=== PATIENT | female | born 1925 | race Caucasian/White ===

== ENCOUNTER 2016-06-17 09:38 | Observation (INO) | payer OTHER, MEDICARE ==
[2016-06-17] MEDS ORDERED: IOPAMIDOL (ISOVUE 370) 100 ML BTL IV ONE (09:43)
--- NOTE | 2016-06-17 09:50 | CPEKG ---
Heart Rate: 69 RR Interval: 870 P-R Interval: 162 QRSD Interval: 110 QT Interval: 420 QTC Interval: 450 QRS [place]: 268 T Wave [place]: 31 EKG Severity - ABNORMAL ECG - EKG Impression: ATRIAL-PACED RHYTHM EKG Impression: LAD, CONSIDER LEFT ANTERIOR FASCICULAR BLOCK EKG Impression: LOW VOLTAGE IN FRONTAL LEADS EKG Impression: CONSIDER LEFT VENTRICULAR HYPERTROPHY Electronically Signed By: Brandy Castro 17-Jun-2016 11:16:04
--- NOTE | 2016-06-17 09:51 | EDPHY ---
H & P HPI/ROS: CHIEF COMPLAINT: Fall, head injury HISTORY OF PRESENT ILLNESS: 89-year-old female with a history of atrial fibrillation on anticoagulation presents with a head injury. She lives in assisted living and was last seen normal yesterday. This morning she was found on the floor, with a contusion on her forehead. 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 On the way to the emergency department, her speech became slurred. She now complains of a headache and neck pain. No chest pain, abdominal pain or extremity pain. Apparently her a couple of weeks ago and she has not been eating or drinking much since then. She was admitted in April 2016 after a fall of unclear etiology. REVIEW OF SYSTEMS: Constitutional: No fever, no chills Eyes: No visual changes ENT: No sore throat Respiratory: No cough, no shortness of breath Cardiac: No chest pain Gastrointestinal: No nausea, no vomiting, no abdominal pain Genitourinary: no dysuria Musculoskeletal: No leg pain or swelling Skin: No rash Psychiatric: Situational depression Past Medical/Surgical History: Atrial fibrillation Social History: Recently Lives in assisted living Smoking Status: Never smoked Physical Exam: General Appearance: Alert, answers questions appropriately Head: ecchymoses on the right side of forehead Eyes: No conjunctival erythema, PERRLA, EOMI ENT, Mouth: no oral trauma, no facial bony tenderness Neck: no midline tenderness Respiratory: No chest wall tenderness, lungs clear bilaterally anteriorly Cardiovascular: Regular rate and rhythm Abdomen: Abdomen is soft and nontender Skin: No lacerations, no abrasions Back: No midline T/L/S tenderness Extremities: Pelvis is stable and nontender; no extremity tenderness or deformity, range of motion without pain Neurological: alert, oriented to person and place, 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, able to move toes Psychiatric: Mood and affect normal Constitutional: Initial Vital Signs Temperature (C) 35.4 C L 06/17/16 09:38 Heart Rate 70 06/17/16 09:38 Respiratory Rate 16 06/17/16 09:38 Blood Pressure 197/111 H 06/17/16 09:38 O2 Sat (%) 100 06/17/16 09:38 O2 Delivery Mode Nasal Cannula O2 (L/minute) 2 Allergies/Adverse Reactions: morphine Allergy (Verified 05/13/16 02:49) oxycodone [Oxycodone] Allergy (Verified 05/13/16 02:49) Home Medications: Medication Instructions Recorded Amiodarone HCl [Pacerone (*)] 100 mg PO DAILY 01/18/13 Docusate Sodium [Colace 100 MG (*)] 100 mg PO TID 12/22/13 Hydrocodone/Acetaminophen [Tenino 2 tab PO TID@0800,1400,2000 12/22/13 5/325 (*)] Sennosides 8.6 mg PO HS 12/22/13 Lisinopril [Zestril 20 mg (*)] 20 mg PO DAILY 12/29/13 Amitriptyline HCl [Elavil 10 mg 10 mg PO HS 07/07/15 (*)] Multivitamins [Multivitamin (*)] 1 each PO DAILY 07/07/15 DULoxetine [Cymbalta 30 MG (*)] 30 mg PO HS 01/03/16 Dabigatran Etexilate Mesylate 75 mg PO BID 01/03/16 [Pradaxa] Acetaminophen [Tylenol 325mg (*)] 650 mg PO Q4 PRN #0 tab 01/07/16 Magnesium Hydroxide [Milk of 30 ml PO DAILY PRN #0 udcup 01/07/16 Magnesia (*)] Magnesium Oxide [Magnesium Oxide 500 mg PO DAILY 04/03/16 500 mg] Polyethylene Glycol 3350 [Miralax 17 gm PO DAILY PRN MDD CONSTIPATION 04/03/16 17 gm (*)] Ondansetron Odt [Zofran Odt 4 mg 4 mg PO Q4 PRN 04/23/16 (*)] Gabapentin [Neurontin 300 MG (*)] 300 mg PO DAILY #30 cap 04/24/16 Gabapentin [Neurontin 400 MG (*)] 400 mg PO HS #30 cap 04/24/16 Zolpidem Tartrate [Ambien 10 mg] 10 mg PO HS PRN 06/17/16 Medical Decision Making - Diagnostics EKG Interpretation: EKG interpreted by me reveals an atrial paced rhythm, rate 69, no ST or T segment changes. Imaging: CT scans of the brain and cervical spine read by Dr. Vel iJ revealed no acute changes. Chest x-ray reviewed by me reveals possible right-sided rib fractures ED Course/Re-evaluation: The patient was slightly hypothermic on arrival with a oral temperature of 35.4 degrees. Warmed IV fluids initiated and warm blankets placed. A cervical spine collar was placed because of neck pain. After the normal CT scans, the cervical spine was cleared by me and the collar was removed. Laboratory results reveal hyponatremia. In reviewing her prior serum sodium levels, she is almost always hyponatremic, though her serum sodium level today of 126 is on the low end of her usual sodium levels. The clinical history supports dehydration, as she has not been eating or drinking much since her . I will give her gentle IV fluids for now. The hospitalist service was consulted for admission. Because the patient came in as a limited +trauma activation, Dr. Ramon Sheikh was consulted for trauma. Chest x-ray results reveal possible rib fractures and the results were discussed with the patient. I re-examined her. She has minimal right lateral chest wall tenderness, unclear if she has rib fractures or not. Normal chest wall inspection, no ecchymosis or abrasion. She is having minimal discomfort and there is no evidence of pneumothorax. 12:30p--more alert, smiling, pleasant. Differential Diagnosis: Differential diagnosis includes though it is not limited to fracture, intracranial hemorrhage, pneumothorax, hemothorax, intra-abdominal hemorrhage. - Data Points Laboratory Results: Laboratory Results 06/17/16 10:01 06/17/16 10:01 06/17/16 10:01 WBC 7.07 10^3/uL (3.80-9.50) RBC 3.85 L 10^6/uL (4.18-5.33) Hgb 12.9 g/dL (12.6-16.3) Hct 36.8 L % (38.0-47.0) MCV 95.6 fL (81.5-99.8) MCH 33.5 pg (27.9-34.1) MCHC 35.1 g/dL (32.4-36.7) RDW 12.8 % (11.5-15.2) Plt Count 180 10^3/uL (150-400) MPV 8.8 fL (8.7-11.7) Neut % (Auto) 84.2 H % (39.3-74.2) Lymph % (Auto) 9.6 L % (15.0-45.0) [place] % (Auto) 5.7 % (4.5-13.0) Eos % (Auto) 0.1 L % (0.6-7.6) Baso % (Auto) 0.1 L % (0.3-1.7) Nucleat RBC Rel Count 0.0 % (0.0-0.2) Absolute Neuts (auto) 5.95 10^3/uL (1.70-6.50) Absolute Lymphs (auto) 0.68 L 10^3/uL (1.00-3.00) Absolute Monos (auto) 0.40 10^3/uL (0.30-0.80) Absolute Eos (auto) 0.01 L 10^3/uL (0.03-0.40) Absolute Basos (auto) 0.01 L 10^3/uL (0.02-0.10) Absolute Nucleated RBC 0.00 10^3/uL (0-0.01) Immature Gran % 0.3 % (0.0-1.1) Immature Gran # 0.02 10^3/uL (0.00-0.10) PT 14.6 SEC (12.0-15.0) INR 1.15 (0.83-1.16) APTT 33.1 SEC (23.0-38.0) Sodium 126 L mEq/L (134-144) Potassium 4.0 mEq/L (3.5-5.2) Chloride 92 L mEq/L (97-110) Carbon Dioxide 26 mEq/l (22-31) Anion Gap 8 mEq/L (8-16) BUN 20 mg/dL (7-23) Creatinine 0.5 L mg/dL (0.6-1.0) Estimated GFR > 60 Glucose 117 H mg/dL (70-100) Calcium 8.4 L mg/dL (8.5-10.4) TSH Pending Medications Given: Discontinued Medications Sodium Chloride (Ns) 500 mls @ 0 mls/hr IV ONCE ONE PRN Reason: As Directed Stop: 06/17/16 10:56 Last Admin: 06/17/16 11:22 Dose: 500 mls Departure - Departure Disposition: Home, Routine, Self-Care Clinical Impression: Recurrent falls, Head injury, Hyponatremia syndrome Condition: Fair
--- NOTE | 2016-06-17 10:06 | CT ---
CT Brain Without Contrast 0 948 hours History: Recent fall. Closed head injury. Unresponsive. On Coumadin medication.. Technique: Axial computed tomographic images of the brain without contrast. Images were reconstruct ed down to 1.25 mm slice thickness. Dose reduction techniques were utilized. Comparison to prior CT study from May 13, 2016. Findings: Ventricles, cisterns, and sulci are widened consistent with moderate atrophy. No hydroceph alus, masses, midline shift/herniation, or subdural hematomas. No intraparenchymal hemorrhage or mass effect. Moderate to extensive stable hypodensities are seen in the white matter of bilateral cerebra l hemispheres. There is no acute peripheral cerebral infarct seen. Arteriosclerotic calcifications are noted associated with distal ICA in the parasellar location bilaterally. Bone windows demonstrate no displaced fractures. Paranasal sinuses and mastoid air cells are clear. Impression: 1. Stable moderate atrophy. 2. No hemorrhage, mass effect, or definite acute peripheral infarct. 3. Stable moderate to extensive microvascular ischemic disease. These findings were discussed by telephone with Dr. Brandy Castro at 1010hrs.
--- NOTE | 2016-06-17 10:13 | CT ---
CT Cervical Spine 0 948 hours History: Recent trauma. Evaluate for possible cervical spine injury. Technique: Spiral imaging was obtained from the base of skull to the upper chest. Images were reconst ructed at 1.25 mm slice thickness. Images were reconstructed in multiple planes. Dose reduction techn iques were utilized. Comparison to prior CT study of April 03, 2016. Findings: Vertebral body heights are well maintained. There are no subluxations. No acute fractures a re seen. There is stable healing fracture or stress fracture response right pedicle of C7. Anterior i nterbody fusion is seen from C3 through C7 appears to be intact with good alignment. There is no sign ificant facet hypertrophy involving the cervical spine. Paravertebral soft tissues demonstrate no sig nificant abnormality. Impression: 1. No acute osseous abnormality seen about the cervical spine. 2. Anterior interbody fusion from C3 through C7. 3. Stable healing fracture or stress fracture response right pedicle of C7. These findings were discussed by telephone with Dr. Brandy Castro at 1010hrs.
[2016-06-17 10:19] LABS: % IMMATURE GRANULYOCYTES 0.3 % (0.0-1.1); ABSOLUTE IMMATURE GRANULOCYTES 0.02 10^3/uL (0.00-0.10); ADD DIFF? NO; ADD MORPH? NO; ADD SCAN? NO; ATYPICAL LYMPHOCYTE FLAG 0 (0-99); FRAGMENT RBC FLAG 0 (0-99); HEMATOCRIT 36.8 % (38.0-47.0); HEMOGLOBIN 12.9 g/dL (12.6-16.3); LEFT SHIFT FLG 30 (0-99); LIPEMIA HEMOLYSIS FLAG 90 (0-99); MEAN CELL HEMOGLOBIN 33.5 pg (27.9-34.1); MEAN CELL HEMOGLOBIN CONCENTR. 35.1 g/dL (32.4-36.7); MEAN CELL VOLUME 95.6 fL (81.5-99.8); MEAN PLATELET VOLUME 8.8 fL (8.7-11.7); PLATELET CLUMPS FLAG 10 (0-99); PLATELET COUNT 180 10^3/uL (150-400); RED BLOOD CELL COUNT 3.85 10^6/uL (4.18-5.33); RED CELL DISTRIBUTION WIDTH 12.8 % (11.5-15.2)
--- NOTE | 2016-06-17 10:26 | DX ---
Portable Chest 10:10 a.m. History: Trauma, recent fall Comparison: May 13, 2016 Findings: There are possibly acute fractures of the right lateral fifth, sixth and seventh ribs. Ther e is no pneumothorax pleural effusion, pulmonary contusion or mediastinal widening. There is a stable small retrocardiac hiatal hernia. A calcified granuloma in the lateral right upper lobe is stable. A scoliosis at the thoracolumbar junction is stable and associated with degenerative disk disease . A left chest wall pacer device and associated bipolar pacer leads remain in place. Heart size and pulmo nary vascularity are normal. Impression: Possible 3 right lateral rib fractures. Correlation with symptoms is recommended.
[2016-06-17 10:28] LABS: INR 1.15 (0.83-1.16); PROTIME(PATIENT) 14.6 SEC (12.0-15.0)
[2016-06-17 10:29] LABS: APTT 33.1 SEC (23.0-38.0)
[2016-06-17 10:32] LABS: ANION GAP 8 mEq/L (8-16); CALCIUM 8.4 mg/dL (8.5-10.4); CARBON DIOXIDE 26 mEq/l (22-31); CHLORIDE 92 mEq/L (97-110); CREATININE 0.5 mg/dL (0.6-1.0); GLOMERULAR FILTRATION RATE > 60; GLUCOSE 117 mg/dL (70-100); SODIUM 126 mEq/L (134-144)
[2016-06-17 10:43] LABS: COLOR YELLOW; LEUKOCYTE ESTERASE,URINE NEGATIVE (NEGATIVE); NITRITE,URINE NEGATIVE (NEGATIVE)
[2016-06-17] MEDS ORDERED: NS 500 ML IV ONE (10:55)
[2016-06-17 10:58] LABS: AMORPHOUS PRESENT /hpf (NONE-1+); BACTERIA 1+ /hpf (NONE SEEN); MUCUS TRACE /lpf (NONE-1+)
--- NOTE | 2016-06-17 11:07 | DX ---
Lumbar Spine, 2 standing views History: Generalized back pain post fall today, incontinence, altered mental status Comparison: December 18, 2012 Findings: No acute fracture or malalignment is identified. A severe lumbar dextroscoliosis with mild rightward listhesis of L2 on top of L3 and mild leftward listhesis of L3 on top of L4 are stable as a re multiple osteophytes along the concavity of the scoliosis. On the lateral view a mild retrolisthes is at L2-L3 is stable. There is chronic degenerative disk disease throughout the lumbar spine with va cuum phenomenon present between L3 and S1. Atherosclerotic calcification of the distal thoracic and abdominal aorta is stable. Impression: Nothing acute identified. If incontinence is acute, then consider MRI of the lumbar regio n. Results discussed with Dr. Castro at 11:05 a.m.
[2016-06-17] MEDS ORDERED: MAGNESIUM HYDROXIDE 30 ML UDCUP PO PRN (14:01)
[2016-06-17] MEDS ORDERED: ONDANSETRON DISINTEGRATING 4 MG TAB PO PRN (14:01)
[2016-06-17] MEDS ORDERED: ACETAMINOPHEN 325 MG TAB PO PRN (14:01)
[2016-06-17] MEDS ORDERED: POLYETHYLENE GLYCOL 3350 17 GM PKT PO PRN ×2 (14:01→14:06)
--- NOTE | 2016-06-17 14:16 | GHP ---
[f rep st] HISTORY AND PHYSICAL DATE OF ADMISSION: 06/17/2016 CHIEF COMPLAINT: Fall and found down. HISTORY OF PRESENT ILLNESS: This is an 89-year-old female with history of multiple hospitalizations for falling, last of which was on May 13. She presented to the emergency department today after she was found down at her assisted living at [facility]. The patient does not recall what happened. She is unsure if she lost consciousness. She was brought to the emergency department by EMS where she was noted to have some slurred speech, headache and neck pain. The patient's a few weeks ago. During the time of my exam, the patient is able to tell me that she has been eating and drinking. She denies any chest pain or shortness of breath. She has been under hospice care and her family has been trying to arrange more home health care for her given her increasing weakness. PAST MEDICAL HISTORY: 1. Paroxysmal atrial fibrillation. 2. Hypertension. 3. Obstructive sleep apnea. 4. Coronary artery disease. 5. Chronic hyponatremia. 6. Chronic back pain with chronic continuous narcotic use. 7. Multiple hospitalizations for falls, last of which was May 13, 2016. PAST SURGICAL HISTORY: 1. Pacemaker placement. 2. Hysterectomy. 3. Colectomy for intestinal torsion. 4. C3 through C7 neck fusion. MEDICATIONS: Home medications were reviewed. Refer to [id number] for details. ALLERGIES: Morphine and oxycodone. SOCIAL HISTORY: The patient resides at [facility] and has been under hospice care. She drinks alcohol occasionally. She denies any tobacco or illicit drug use. FAMILY HISTORY: Reviewed and noncontributory. REVIEW OF SYSTEMS: Comprehensive 10-point review of systems was done and is negative except for as mentioned in the HPI and below. : The patient does report some urinary frequency but no pain. Musculoskeletal : She reports some pain in her neck but denies any new numbness or weakness in her arms or her hands. PHYSICAL EXAMINATION: VITAL SIGNS: Blood pressure 167/88, pulse is 70, respiratory rate 19, O2 saturation 96% on room air. Temperature afebrile. GENERAL: No acute distress. NECK: Supple with no gross deformity or step offs. No cervical lymphadenopathy. MOUTH: Moist mucous membranes. CARDIOVASCULAR: S1, S2. No JVD. The patient does have some asymmetric edema, left leg greater than right. PULMONARY: Lungs are clear. No wheezes, rales, or rhonchi. ABDOMEN: Soft, nontender, nondistended. No guarding or rebound tenderness. Normoactive bowel sounds. EXTREMITIES: No clubbing or cyanosis. NEURO: Cranial nerves 2-12 grossly intact. No focal motor or sensory deficits. DIAGNOSTIC STUDIES: WBC 7, hemoglobin 12.9, hematocrit 36.8, platelets 180. Sodium 126, potassium 4, chloride 92, BUN 20, creatinine 0.5, glucose 117. UA: Negative nitrate, negative leukocyte esterase, trace WBCs, 1+ glucose. EKG, which I visualized and personally interpreted, shows atrial paced rhythm. Rate 69 beats per minute. Head CT was negative for bleed. Chest x-ray shows possible 3 right lateral rib fractures which are likely old given her lack of acute pain. Lumbar spine x- rays were reviewed and negative for obvious fracture. ASSESSMENT AND PLAN: This is an 89-year-old female with history of multiple medical problems as detailed above presenting with: 1. Recurrent falling in the setting of deconditioning, weakness, and chronic hyponatremia. Plan: The patient does not have any obvious cause for her fall other than her baseline gait instability and weakness. She is currently under the care of hospice and would be appropriate to discharge home with the appropriate level of home care and hospice once arrangements are in place. 2. Chronic hyponatremia possibly related to Elavil and Cymbalta. Plan: Obtain urine sodium. The patient did receive a liter of normal saline in the emergency department. Will repeat labs in the morning. Will also check a TSH. 3. History of atrial fibrillation, on Pradaxa and amiodarone Plan: Continue home meds 4. History of chronic pain on chronic continuous opioids Plan: cont home dose of [place] 5. Urinary frequency with no signs of infection on UA Plan: continue to monitor /[id number]/MODL MTDD
--- NOTE | 2016-06-17 14:16 | GCON ---
[f rep st] CONSULTATION GENERAL SURGERY CONSULTATION DATE OF CONSULTATION: 06/17/2016 CHIEF COMPLAINT: Mechanical fall on blood thinners. HISTORY OF PRESENT ILLNESS: This is an 89-year-old female who arrives at the [facility] Emergency Department as a limited-plus trauma activation. Of note, the patient does reside in a nursing facility and the patient was found down this morning. The patient was and currently is still amnestic to the event. At any rate, after piecing things together, it appears that the patient was found on the floor with a contusion on her forehead and en route here was confused; however, cleared upon arrival. She is completely amnestic to the event and recalls really little to nothing of the event. Currently, in the Emergency Department, she is alert, oriented to person, place, and time; however , disoriented to the episode that caused this. She is protecting her airway, she is breathing appropriately, and has normal circulation. She currently complains that she needs to urinate in that she does have some head pain, but denies having any other complaints. She does not recall the event nor anything leading up to it and has no complaints other than the head pain at this point in time. PAST MEDICAL HISTORY: Atrial fibrillation, hypertension, peripheral neuropathy. PAST SURGICAL HISTORY: Hysterectomy, history of some bowel resection remotely for what she said was constipation, and an anterior cervical spinal fusion. CURRENT MEDICATIONS: Please see the medication reconciliation performed in [facility]. ALLERGIES: Morphine and oxycodone. PHYSICAL EXAM: VITAL SIGNS: Temperature 36.7, blood pressure 167/88, heart rate 70, and she is 96% on room air. GENERAL: She is alert, oriented. Her GCS at this time is 15. En route, she was confused, but this is cleared. HEENT : Head: She has a contusion on the anterior portion of her forehead without signs of active extravasation. Her pupils are equal, round, and reactive to light and accommodation with intact extraocular movements. She has no facial trauma. NECK: She has no midline C-spine tenderness. She does have some left lateral neck musculoskeletal tenderness to palpation. CHEST: She has no crepitus, is nontender to palpation, no palpable step offs. LUNGS: Clear to auscultation bilaterally. ABDOMEN: Soft, nondistended, nontender. A previously well-healed midline scar consistent with surgical history. PELVIS: Stable to both AP and lateral compression. EXTREMITIES: Warm well perfused. NEUROLOGICAL: Cranial nerves II through XII appear to be intact. She is completely nonfocal and moving all extremities with appropriate sensation. REVIEW OF SYSTEMS: A full 10-point review was performed and unless explicitly stated above is otherwise negative. IMAGIN. CT head: Negative for bleed and acute injury. 2. CT C-spine: Negative for acute injury. Does show previous C3 through C7 anterior cervical fusion. Hardware appears to be in adequate position. 3. Chest x-ray shows query of some right lateral rib fractures, but no pneumothorax, or hemothorax, or any other concerning pathology. 4. Lumbar spine x-rays are negative for any acute fracture. ASSESSMENT AND PLAN: An 89-year-old female on blood thinners for A-fib status post fall, found down. The patient will subsequently be admitted to the Medical Service for pain management and monitoring, as well as workup for any possible event that may have led to her episode. Given the fact that she did present as a trauma, she will be followed by the Trauma Service. A tertiary examination will be performed. More than likely, we will sign off management to the Medical Service if no injuries are identified. I did discuss with the patient good pulmonary toilet. I do not feel that she has rib fractures. Clinically, she is nontender. However, as she continues to clear, we will re- evaluate and continue to push pain control and aggressive spirometry and pulmonary toilet if she is found to have one. Thank you very much. /[id number]/MODL MTDD
[2016-06-17] MEDS: AMIODARONE HCL 200 MG TAB PO SCH (14:56)
[2016-06-17] MEDS: HYDROCODONE/APAP 5/325 TAB PO SCH ×2 (15:07→22:55)
[2016-06-17] MEDS: DOCUSATE SODIUM 100 MG CAP PO SCH ×2 (15:08→22:58)
[2016-06-17] MEDS: LISINOPRIL 20 MG TAB PO SCH (15:08)
[2016-06-17] MEDS ORDERED: AMITRIPTYLINE HCL 10 MG TAB PO SCH (21:00)
[2016-06-17] MEDS ORDERED: DULoxetine 30 MG CAP PO SCH (21:00)
[2016-06-17] MEDS ORDERED: GABAPENTIN 400 MG CAP PO SCH (21:00)
[2016-06-17] MEDS ORDERED: SENNOSIDES 1 TAB PO SCH ×2 (21:00)
[2016-06-17] MEDS: DABIGATRAN ETEXILATE MESYL 75 MG CAP PO SCH (22:56)
[2016-06-18 04:55] VITALS: PULSE 70
[2016-06-18 05:19] LABS: % IMMATURE GRANULYOCYTES 0.2 % (0.0-1.1); ABSOLUTE IMMATURE GRANULOCYTES 0.01 10^3/uL (0.00-0.10); ADD DIFF? NO; ADD MORPH? NO; ADD SCAN? NO; ATYPICAL LYMPHOCYTE FLAG 60 (0-99); FRAGMENT RBC FLAG 0 (0-99); HEMATOCRIT 32.4 % (38.0-47.0); LEFT SHIFT FLG 20 (0-99); LIPEMIA HEMOLYSIS FLAG 90 (0-99); MEAN CELL HEMOGLOBIN 33.3 pg (27.9-34.1); MEAN CELL VOLUME 98.2 fL (81.5-99.8); MEAN PLATELET VOLUME 9.2 fL (8.7-11.7); PLATELET CLUMPS FLAG 0 (0-99); PLATELET COUNT 161 10^3/uL (150-400); RED CELL DISTRIBUTION WIDTH 13.1 % (11.5-15.2)
[2016-06-18 05:43] LABS: ANION GAP 6 mEq/L (8-16); CALCIUM 8.5 mg/dL (8.5-10.4); CARBON DIOXIDE 25 mEq/l (22-31); CHLORIDE 97 mEq/L (97-110); CREATININE 0.7 mg/dL (0.6-1.0); GLOMERULAR FILTRATION RATE > 60; GLUCOSE 90 mg/dL (70-100); SODIUM 128 mEq/L (134-144)
--- NOTE | 2016-06-18 07:53 | HOSPPROG ---
Hospitalist Progress Note Assessment/Plan: 89 y/o F PMH PAF on OAC/rhythm control, htn, DUNIA, CAD, chronic hyponatremia, chronic back pain on narcotics, previous ppm p/w fall with multiple admissions for falls, last of which was 05/13. She was found down at her AL at [place] She is unclear as to what lead to the fall. Did not note antecedent palpitations, cp, dyspnea, dizziness. Has been in hospice care. #. fall: recurrent in patient on Pradaxa does not appear she has any acute fractures on lumbar XR/ 3 R lat rib fx that appear older spoke with trauma surgeon who feels that physical exam does not support acute rib fx clinically reports chronic back pain PT to evaluate to see if she will need rehab which seems likely #. PAF: will d/w family if they want to keep her on Pradaxa #. htn: BP adequately controlled home med of Lisinopril continued #. CAD: listed as problem denies angina #. chronic back pain: home Peak dose continued #. chronic hyponatremia: appears stable #. DVT ppx: continue Pradaxa #. Dispo: home with hospice when appropriate level of care can be arranged Subjective: Reports no cp, dyspnea, palpitations. Objective: Vital Signs Temp Pulse Resp BP Pulse Ox 98.0 F 70 16 132/61 H 94 06/18/16 04:00 06/18/16 04:00 06/18/16 04:00 06/18/16 04:00 06/18/16 04:00 Laboratory Results 06/18/16 04:39 06/18/16 04:39 06/17/16 06/18/16 06/19/16 05:59 05:59 05:59 Intake Total 500 Balance 500 PT 14.6 SEC (12.0-15.0) 06/17/16 10:01 INR 1.15 (0.83-1.16) 06/17/16 10:01 - Physical Exam Constitutional: not in pain Eyes: PERRL Cardiovascular: regular rate and rhythym, no murmur, rub, or gallop Respiratory: no respiratory distress, no rales or rhonchi Psychiatric: interacting appropriately ICD10 Worksheet Patient Problems: Problems Problem Status Diagnosed Chest pain Acute Generalized weakness Acute Head injury Acute Hyponatremia Acute Hyponatremia syndrome Acute Left knee pain Acute Recurrent falls Acute Right hip pain Acute Right shoulder pain Acute Chronic pain Acute Failure to thrive Acute Fall Acute Hypertensive urgency Acute
--- NOTE | 2016-06-18 07:58 | TRAUMAPN ---
Assessment/Plan: s/p fall/found down with no traumatic injuries identified query right lateral rib fractures on CXR are not supported clinically (no pleuritic chest pain or tenderness to palpation) the trauma service will sign off, please reconsult as needed, if any traumatic issues are identified Subjective: tolerating a diet no TRUJILLO, neck pain, back pain, pleuritic chest pain, or abdominal pain Objective: Vital Signs Temp Pulse Resp BP Pulse Ox 36.7 C 70 16 132/61 H 94 06/18/16 04:00 06/18/16 04:00 06/18/16 04:00 06/18/16 04:00 06/18/16 04:00 Laboratory Results 06/18/16 04:39 06/18/16 04:39 06/17/16 06/18/16 06/19/16 05:59 05:59 05:59 Intake Total 500 Balance 500 PT 14.6 SEC (12.0-15.0) 06/17/16 10:01 INR 1.15 (0.83-1.16) 06/17/16 10:01 Physical Exam - Physical Exam General Appearance: alert EENT: PERRL/EOMI Neck: other (C-spine nontender to palpation without step offs) Respiratory: chest non-tender, lungs clear, other Cardiac/Chest: regular rate, rhythm Abdomen: non-tender, soft, No distended Extremities: other (no gross deformities of upper or lower extremities)
[2016-06-18] MEDS: LISINOPRIL 20 MG TAB PO SCH (08:12)
[2016-06-18] MEDS: HYDROCODONE/APAP 5/325 TAB PO SCH ×2 (08:13→13:38)
[2016-06-18] MEDS: DOCUSATE SODIUM 100 MG CAP PO SCH (08:13)
[2016-06-18] MEDS: DABIGATRAN ETEXILATE MESYL 75 MG CAP PO SCH (08:14)
[2016-06-18] MEDS: AMIODARONE HCL 200 MG TAB PO SCH (08:17)
[2016-06-18] MEDS ORDERED: MAGNESIUM OXIDE 400 MG TAB PO SCH (09:00)
[2016-06-18] MEDS ORDERED: MULTIVITAMINS 1 EACH TAB PO SCH (09:00)
[2016-06-18] MEDS ORDERED: GABAPENTIN 300 MG CAP PO SCH (09:00)
[2016-06-18] MEDS ORDERED: NON-FORMULARY NEW DRUG (Magnesium Oxide [Magnesium Oxide 500 Mg] 500 MG) PO SCH (09:00)
[2016-06-18 11:56] VITALS: BP 110/53; RESP 16; TEMP 97.5; O2SAT 90
--- NOTE | 2016-06-18 12:39 | GDS ---
[f rep st] DISCHARGE SUMMARY DISCHARGE DIAGNOSES: 1. Fall in patient with recurrent falls. 2. No acute fractures noted on lumbar and rib x-rays. 3. History of paroxysmal atrial fibrillation, on Pradaxa. 4. History of hypertension with controlled readings in this admission. 5. History of coronary artery disease, stable. 6. History of chronic hyponatremia, at current baseline. 7. History of chronic back pain. PROCEDURES: 1. 06/17/[address], which showed a stable healing fracture or stress fracture in the ri ght pedicle at C7. 2. 06/17/[address], which showed stable moderate atrophy and stable moderate extensive microvascu lar ischemic disease. 3. 06/17/2016 chest x-ray, which showed possible 3 right lateral rib fractures. 4. 06/17/2016 lumbar spine x-ray, nothing acutely identified. CONSULTATIONS: Trauma surgery. BRIEF HISTORY: Please see dictated H and P by Dr. Feliz for complete details. In brief, the patient is an 89-year-old female with multiple hospitalizations for falls. Her last fall was on May 13. With this fall, she was at her independent living at [facility]. She does not recall any antecedent chest pain, dyspnea, or palpitations. Her daughter feels that she will need to urinate i n the night and that has led to previous falls. They have started 16-hour care for an attendant to gita e with her overnight, which had not started yet. The plan was for this care to start starting tonigh t. The patient is being discharged to home with 16-hour supervision, which would cover overnight and then through several hours of the daytime as well. HOSPITAL COURSE: 1. Fall. Her chest x-ray suggested possible right lateral rib fractures. She has no clinical corre lation to this. Trauma surgery has seen and feels that no further workup is needed for her ribs. 2. Paroxysmal atrial fibrillation. She is on Pradaxa. If she continues to have falls, she should d iscuss with her servicenow administrator, Dr. Stubbs, whether she should continue this or not. 3. Hypertension. Blood pressures were controlled and her home lisinopril was continued. 4. Chronic back pain. Her home [place] dose has been continued. 5. Chronic hyponatremia at 128, which is her baseline. 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 RESULTS PENDING: None. PHYSICAL EXAM: VITAL SIGNS: On the day of discharge, blood pressure 144/63, heart rate 70, respirat ions 18, O2 saturation 93% on room air. GENERAL: She is a pleasant female in no apparent distress. HEENT: Her head shows mild ecchymosis at the site of the right anterior forehead. Eyes: TIMOTHY. HE ART: Regular rate and rhythm. LUNGS: Clear. ABDOMEN: Nontender with normoactive bowel sounds. S KIN: Warm and dry. NEURO: AAO x3. DISCHARGE MEDICATIONS: Please see medication reconciliation for complete details. She is being disc harged on all her home medications. FOLLOWUP INSTRUCTIONS: 1. Follow up with Dr. Martines in 2 weeks' time. 2. Continue in home hospice with support from outside caregivers. /[id number]/MODL
== END 2016-06-18 13:47 | disposition hospice, home (50) ==
LOC: EDUNIT# → INTOOBSV 10:32 → F3E 13:59
PROVIDERS: ADMIT Family Medicine; ATTEND Internal Medicine
DX: S00.93XA Contusion of unspecified part of head, initial encounter (principal); W18.39XA Other fall on same level, initial encounter; Y92.129 Unspecified place in nursing home as the place of occurrence of the external cause; E86.0 Dehydration; I48.0 Paroxysmal atrial fibrillation; F43.21 Adjustment disorder with depressed mood; R29.6 Repeated falls; Z91.81 History of falling; E87.1 Hypo-osmolality and hyponatremia; M54.9 Dorsalgia, unspecified; F11.20 Opioid dependence, uncomplicated; R35.0 Frequency of micturition; I10 Essential (primary) hypertension; G47.33 Obstructive sleep apnea (adult) (pediatric); Z79.01 Long term (current) use of anticoagulants; Z98.1 Arthrodesis status; Z90.49 Acquired absence of other specified parts of digestive tract
CPT/HCPCS: 70450; 71010; 72100; 72125; 93005; 96360; 97165; 99285; G0378; G8987; G8988; Q9967; G0390

== ENCOUNTER 2016-08-05 08:51 | Emergency (ER) | payer OTHER, MEDICARE ==
--- NOTE | 2016-08-05 09:00 | EDPHY ---
H & P HPI/ROS: HPI CHIEF COMPLAINT: Generalized weakness HISTORY OF PRESENT ILLNESS: This patient very pleasant 89-year-old female significant past medical history for recurrent falls, AFib on Pradaxa, hypertension, coronary disease, hyponatremia and chronic back pain, patient presents emergency room stating that she felt a irregular heart rate and felt as if she was week she had no chest pain no shortness of breath was not going to pass out did not have any fall. She tells me she did not want to come to the emergency room and that she is enrolled in hospice and did not want to come. However she was transported here by EMS. Of note this patient I am very familiar with of seen her on multiple occasions. She has a chronic underlying AFib and chronic back pain, neck pain and shoulder pain. She has no new complaints today. Past Medical History: recurrent falls, AFib on Pradaxa, hypertension, coronary disease, hyponatremia and chronic back pain Past Surgical History: No recent surgical history Social History: Lives at [facility], enrolled in hospice Family History: noncontributory ROS REVIEW OF SYSTEMS: A comprehensive 10 point review of systems is otherwise negative aside from elements mentioned in the history of present illness. Exam Constitutional appears well nontoxic, frail, triage nursing summary reviewed, vital signs reviewed, awake/alert. Eyes normal conjunctivae and sclera, EOMI, PERRLA. HENT normal inspection, atraumatic, moist mucus membranes, no epistaxis, neck supple/ no meningismus, no raccoon eyes. Respiratory clear to auscultation bilaterally, normal breath sounds, no respiratory distress, no wheezing. Cardiovascular rate normal, regular rhythm, no murmur, no edema, distal pulses normal. Gastrointestinal soft, non-tender, no rebound, no guarding, normal bowel sounds, no distension, no pulsatile mass. Genitourinary no CVA tenderness. Musculoskeletal no midline vertebral tenderness, full range of motion, no calf swelling, no tenderness of extremities, no meningismus, good pulses, neurovascularly intact. Skin pink, warm, & dry, no rash, skin atraumatic. Neurologic awake, alert and oriented x 3, AAOx3, moves all 4 extremities equally, motor intact, sensory intact, CN II-XII intact, normal cerebellar, normal vision, normal speech. Psychiatric normal mood/affect. Heme/Lymph/Immune no lymphadenopathy. Differential Diagnosis: includes but is not limited to in a particular order electrolyte abnormality, A-Fib, dehydration, generalized weakness Medical Decision Making: plan for this patient is basic blood work, gentle hydration with IV fluids normal saline, EKG. Patient tells me she does not want to be here she has no focal complaints at this time. I will contact her living facility as well as her hospice agency. Re-evaluation: I spoke with [facility] I did contact them spoke personally they will have her particular mental health case manager called me. Sury with [facility] Spoke with her. Would like her sent back to [facility] Spoke with Shanna at [facility] who reports to me that the fur storage clerk became concerned this morning called 911 because she was complaining of generalized weakness and palpitations. He seemed slightly off from what her normal baseline is. The fur storage clerk was unaware that the patient is enrolled in hospice. [id number]: Spoke with Niecy her daugther who is fine with her going back. I explained we would check basic blood work and EKG. She is agreeable for her mom to be discharged back home. She will talk to her home health agency to have home health set up when she returns home. 0947: this time I did re-evaluate the patient she is resting comfortably she has no focal complaints she is at her neurological baseline. Plan for this patient basic blood work EKG if everything checks out okay will allow her to go back to her living facility her daughter and agrees with this plan. EKG interpretation by me on record in [facility] system. Impression time of EKG 9:20 a.m., this is an atrially paced rhythm, first-degree AV block ME interval 248 AFib. Otherwise unremarkable EKG. This is similar to previous EKG specifically when compared to EKG on 06/17/2016. 1047: Re-evaluation this time patient has no complaints. She is requesting be discharged from the emergency room. Blood work and urine has been reviewed she does have hyponatremia however not significantly low in this is close to her baseline. Given that she ambulated well throughout the emergency room, he is requesting be discharged has no focal complaints I will allow her to go back to her living facility. I did speak at length with her daughter over the phone. Daughter is comfortable this plan as well. Source: Patient, EMS - Personal History Tetanus Vaccine Date: unknown exact date - Medical/Surgical History Hx Asthma: No Hx Chronic Respiratory Disease: No Hx Diabetes: No Hx Cardiac Disease: Yes Hx Renal Disease: No Hx Cirrhosis: No Hx Alcoholism: No Hx HIV/AIDS: No Hx Splenectomy or Spleen Trauma: No Other PMH: HTN, PACEMAKER, AFIB, ARTHRITIS, BACK PAIN, DUNIA, Chronic hyponatremia. freq falls ,chronic back pain - Social History Smoking Status: Never smoked Constitutional: Initial Vital Signs Temperature (C) 36.6 C 08/05/16 08:59 Heart Rate 84 08/05/16 08:59 Respiratory Rate 14 08/05/16 08:59 Blood Pressure 162/100 H 08/05/16 08:59 O2 Sat (%) 94 08/05/16 08:59 O2 Delivery Mode Room Air Allergies/Adverse Reactions: morphine Allergy (Verified 08/05/16 08:59) oxycodone [Oxycodone] Allergy (Verified 08/05/16 08:59) Home Medications: Medication Instructions Recorded Amiodarone HCl [Pacerone (*)] 100 mg PO DAILY 01/18/13 Docusate Sodium [Colace 100 MG (*)] 100 mg PO TID 12/22/13 Hydrocodone/Acetaminophen [[place] 2 tab PO TID@0800,1400,199912/22/13 5/325 (*)] Sennosides 8.6 mg PO HS 12/22/13 Lisinopril [Zestril 20 mg (*)] 20 mg PO DAILY 12/29/13 Amitriptyline HCl [Elavil 10 mg 10 mg PO HS 07/07/15 (*)] Multivitamins [Multivitamin (*)] 1 each PO DAILY 07/07/15 DULoxetine [Cymbalta 30 MG (*)] 30 mg PO HS 01/03/16 Dabigatran Etexilate Mesylate 75 mg PO BID 01/03/16 [Pradaxa] Acetaminophen [Tylenol 325mg (*)] 650 mg PO Q4 PRN #0 tab 01/07/16 Magnesium Hydroxide [Milk of 30 ml PO DAILY PRN #0 udcup 01/07/16 Magnesia (*)] Magnesium Oxide [Magnesium Oxide 500 mg PO DAILY 04/03/16 500 mg] Polyethylene Glycol 3350 [Miralax 17 gm PO DAILY PRN MDD CONSTIPATION 04/03/16 17 gm (*)] Ondansetron Odt [Zofran Odt 4 mg 4 mg PO Q4 PRN 04/23/16 (*)] Gabapentin [Neurontin 300 MG (*)] 300 mg PO DAILY #30 cap 04/24/16 Gabapentin [Neurontin 400 MG (*)] 400 mg PO HS #30 cap 04/24/16 Zolpidem Tartrate [Ambien 10 mg] 10 mg PO HS PRN 06/17/16 Medical Decision Making - Data Points Laboratory Results: Laboratory Results 08/05/16 09:30 08/05/16 09:30 08/05/16 08/05/16 08/05/16 10:00 09:30 09:30 WBC 6.10 10^3/uL 10^3/uL (3.80-9.50) RBC 4.51 10^6/uL 10^6/uL (4.18-5.33) Hgb 15.0 g/dL g/dL (12.6-16.3) Hct 43.5 % % (38.0-47.0) MCV 96.5 fL fL (81.5-99.8) MCH 33.3 pg pg (27.9-34.1) MCHC 34.5 g/dL g/dL (32.4-36.7) RDW 12.7 % % (11.5-15.2) Plt Count 231 10^3/uL 10^3/uL (150-400) MPV 8.8 fL fL (8.7-11.7) Neut % (Auto) 59.5 % % (39.3-74.2) Lymph % (Auto) 27.0 % % (15.0-45.0) [place] % (Auto) 10.5 % % (4.5-13.0) Eos % (Auto) 1.6 % % (0.6-7.6) Baso % (Auto) 1.1 % % (0.3-1.7) Nucleat RBC Rel Count 0.0 % % (0.0-0.2) Absolute Neuts (auto) 3.62 10^3/uL 10^3/uL (1.70-6.50) Absolute Lymphs (auto) 1.65 10^3/uL 10^3/uL (1.00-3.00) Absolute Monos (auto) 0.64 10^3/uL 10^3/uL (0.30-0.80) Absolute Eos (auto) 0.10 10^3/uL 10^3/uL (0.03-0.40) Absolute Basos (auto) 0.07 10^3/uL 10^3/uL (0.02-0.10) Absolute Nucleated RBC 0.00 10^3/uL 10^3/uL (0-0.01) Immature Gran % 0.3 % % (0.0-1.1) Immature Gran # 0.02 10^3/uL 10^3/uL (0.00-0.10) Sodium 130 mEq/L L mEq/L (134-144) Potassium 4.3 mEq/L mEq/L (3.5-5.2) Chloride 92 mEq/L L mEq/L (97-110) Carbon Dioxide 29 mEq/l mEq/l (22-31) Anion Gap 9 mEq/L mEq/L (8-16) BUN 18 mg/dL mg/dL (7-23) Creatinine 0.7 mg/dL mg/dL (0.6-1.0) Estimated GFR > 60 Glucose 99 mg/dL mg/dL (70-100) Calcium 9.8 mg/dL mg/dL (8.5-10.4) Urine Color YELLOW Urine Appearance CLEAR Urine pH 7.0 (5.0-7.5) Ur Specific [place] 1.009 (1.002-1.030) Urine Protein NEGATIVE (NEGATIVE) Urine Ketones NEGATIVE (NEGATIVE) Urine Blood NEGATIVE (NEGATIVE) Urine Nitrate NEGATIVE (NEGATIVE) Urine Bilirubin NEGATIVE (NEGATIVE) Urine Urobilinogen NEGATIVE EU EU (0.2-1.0) Ur Leukocyte Esterase NEGATIVE (NEGATIVE) Ur Culture Indicated? NOT INDICATED (NI) Urine Glucose NEGATIVE (NEGATIVE) Departure - Departure Disposition: Home, Routine, Self-Care Clinical Impression: Generalized weakness, Hyponatremia Atrial fibrillation Qualifiers: Atrial fibrillation type: unspecified Qualified Code(s): I48.91 - Unspecified atrial fibrillation Condition: Good Instructions: Weakness (ED) Additional Instructions: 1. Return emergency room if you have any worsening symptoms questions or concerns. Referrals: Patient,NotPresent [Unknown] - As per Instructions
[2016-08-05] MEDS ORDERED: NS 500 ML IV SCH (09:30)
--- NOTE | 2016-08-05 09:31 | CPEKG ---
Heart Rate: 87 RR Interval: 690 P-R Interval: 248 QRSD Interval: 88 QT Interval: 384 QTC Interval: 462 QRS [place]: -88 T Wave [place]: -3 EKG Severity - ABNORMAL ECG - EKG Impression: ATRIAL-PACED COMPLEXES EKG Impression: FIRST DEGREE AV BLOCK EKG Impression: PROBABLE LEFT VENTRICULAR HYPERTROPHY EKG Impression: PROBABLE INFERIOR INFARCT, AGE INDETERMINATE Electronically Signed By: Sim Soto 06-Aug-2016 12:15:00
[2016-08-05 09:47] LABS: % IMMATURE GRANULYOCYTES 0.3 % (0.0-1.1); ABSOLUTE IMMATURE GRANULOCYTES 0.02 10^3/uL (0.00-0.10); ADD DIFF? NO; ADD MORPH? NO; ADD SCAN? NO; ATYPICAL LYMPHOCYTE FLAG 10 (0-99); FRAGMENT RBC FLAG 0 (0-99); HEMATOCRIT 43.5 % (38.0-47.0); LEFT SHIFT FLG 10 (0-99); LIPEMIA HEMOLYSIS FLAG 90 (0-99); MEAN CELL HEMOGLOBIN 33.3 pg (27.9-34.1); MEAN CELL HEMOGLOBIN CONCENTR. 34.5 g/dL (32.4-36.7); MEAN CELL VOLUME 96.5 fL (81.5-99.8); MEAN PLATELET VOLUME 8.8 fL (8.7-11.7); PLATELET CLUMPS FLAG 0 (0-99); PLATELET COUNT 231 10^3/uL (150-400); RED BLOOD CELL COUNT 4.51 10^6/uL (4.18-5.33); RED CELL DISTRIBUTION WIDTH 12.7 % (11.5-15.2)
[2016-08-05 10:06] VITALS: RESP 17
[2016-08-05 10:10] LABS: ANION GAP 9 mEq/L (8-16); CALCIUM 9.8 mg/dL (8.5-10.4); CARBON DIOXIDE 29 mEq/l (22-31); CHLORIDE 92 mEq/L (97-110); CREATININE 0.7 mg/dL (0.6-1.0); GLOMERULAR FILTRATION RATE > 60; GLUCOSE 99 mg/dL (70-100); POTASSIUM 4.3 mEq/L (3.5-5.2); SODIUM 130 mEq/L (134-144)
[2016-08-05 10:11] LABS: COLOR YELLOW; LEUKOCYTE ESTERASE,URINE NEGATIVE (NEGATIVE); NITRITE,URINE NEGATIVE (NEGATIVE)
[2016-08-05 11:11] VITALS: BP 142/76; PULSE 87; TEMP 97.5; O2SAT 96
== END 2016-08-05 11:10 | disposition home or self-care (01) ==
LOC: EDUNIT#
DX: I48.91 Unspecified atrial fibrillation (principal); E87.1 Hypo-osmolality and hyponatremia; I10 Essential (primary) hypertension; Z95.0 Presence of cardiac pacemaker

== ENCOUNTER 2016-08-21 17:22 | Emergency (ER) | payer OTHER ==
--- NOTE | 2016-08-21 17:46 | EDPHY ---
H & P Time Seen by Provider: 08/21/16 17:44 HPI/ROS: CHIEF COMPLAINT: Evaluation of subacute right shoulder injury HISTORY OF PRESENT ILLNESS: The patient presents to the ED for evaluation of ongoing right shoulder pain. The patient has fallen twice on her right shoulder over the past 2 weeks. The patient is currently anticoagulated with Coumadin secondary to arrhythmia. The patient reports she has had some pain and stiffness with movement of her right shoulder. She did not strike her head or lose consciousness. She denies neck pain, chest pain, back pain or abdominal pain. The patient reports that her symptoms are mild in nature. REVIEW OF SYSTEMS: A comprehensive 10 point review of systems is otherwise negative aside from elements mentioned in the history of present illness. Source: Patient Exam Limitations: No limitations - Personal History Tetanus Vaccine Date: unknown exact date - Medical/Surgical History Hx Asthma: No Hx Chronic Respiratory Disease: No Hx Diabetes: No Hx Cardiac Disease: Yes Hx Renal Disease: No Hx Cirrhosis: No Hx Alcoholism: No Hx HIV/AIDS: No Hx Splenectomy or Spleen Trauma: No Other PMH: HTN, PACEMAKER, AFIB, ARTHRITIS, BACK PAIN, DUNIA, Chronic hyponatremia. freq falls ,chronic back pain - Social History Smoking Status: Never smoked - Physical Exam Exam: General Appearance: Elderly female, no acute distress Head: Atraumatic Eyes: Pupils equal, round, reactive ENT, Mouth: No hemotympanum, no oral trauma Neck: Nontender, trachea midline Respiratory: No chest wall tender, subcutaneous air, lungs clear bilaterally Cardiovascular: Regular rate and rhythm Abdomen: Abdomen is soft and nontender, pelvis stable Skin: No lacerations, No abrasion Back: No midline T/L/S pain Extremities: Ecchymosis and bruising noted over the right biceps, tenderness over the right shoulder, normal range of motion Neurological: A&Ox3, normal motor function, normal sensory exam Constitutional: Initial Vital Signs Temperature (C) 36.5 C 08/21/16 17:45 Heart Rate 81 08/21/16 17:45 Respiratory Rate 16 08/21/16 17:45 Blood Pressure 178/82 H 08/21/16 17:45 O2 Sat (%) 94 08/21/16 17:45 O2 Delivery Mode Room Air Allergies/Adverse Reactions: morphine Allergy (Verified 08/05/16 08:59) oxycodone [Oxycodone] Allergy (Verified 08/05/16 08:59) Home Medications: Medication Instructions Recorded Amiodarone HCl [Pacerone (*)] 100 mg PO DAILY 01/18/13 Docusate Sodium [Colace 100 MG (*)] 100 mg PO TID 12/22/13 Hydrocodone/Acetaminophen [[place] 2 tab PO TID@0800,1400,2000 12/22/13 5/325 (*)] Sennosides 8.6 mg PO HS 12/22/13 Lisinopril [Zestril 20 mg (*)] 20 mg PO DAILY 12/29/13 Amitriptyline HCl [Elavil 10 mg 10 mg PO HS 07/07/15 (*)] Multivitamins [Multivitamin (*)] 1 each PO DAILY 07/07/15 DULoxetine [Cymbalta 30 MG (*)] 30 mg PO HS 01/03/16 Dabigatran Etexilate Mesylate 75 mg PO BID 01/03/16 [Pradaxa] Acetaminophen [Tylenol 325mg (*)] 650 mg PO Q4 PRN #0 tab 01/07/16 Magnesium Hydroxide [Milk of 30 ml PO DAILY PRN #0 udcup 01/07/16 Magnesia (*)] Magnesium Oxide [Magnesium Oxide 500 mg PO DAILY 04/03/16 500 mg] Polyethylene Glycol 3350 [Miralax 17 gm PO DAILY PRN MDD CONSTIPATION 04/03/16 17 gm (*)] Gabapentin [Neurontin 300 MG (*)] 300 mg PO DAILY #30 cap 04/24/16 Gabapentin [Neurontin 400 MG (*)] 400 mg PO HS #30 cap 04/24/16 Zolpidem Tartrate [Ambien 10 mg] 10 mg PO HS PRN 06/17/16 Pradaxa 08/21/16 Medical Decision Making - Diagnostics Imaging: Right shoulder x-ray: Images reviewed by myself, negative for acute fracture. ED Course/Re-evaluation: The patient presents to the ED for evaluation of shoulder trauma. There is no evidence of an obvious surgical fracture noted on her x-ray today. The patient is encouraged to continue to use ice and Tylenol as needed for pain. She should follow up with our on-call orthopedic surgeon for any persistent pain or decreased mobility. Differential Diagnosis: Differential diagnosis considered includes fracture, sprain, dislocation Departure - Departure Disposition: Home, Routine, Self-Care Clinical Impression: Shoulder sprain, Arm contusion Condition: Good Instructions: Contusion in Adults (ED) Additional Instructions: 1. Please ice as directed for pain and swelling. 2. Your x-ray demonstrates no evidence of an obvious fracture. 3. Please follow up with the orthopedic surgeon you have been referred to for any persistent pain, swelling or other concerns. Referrals: Brien Gan MD [Medical Doctor] - As per Instructions Anthony Martines MD [Primary Care Provider] - As per Instructions
[2016-08-21 19:39] VITALS: BP 118/84; PULSE 80; RESP 14; TEMP 97.9; O2SAT 96
[2016-08-21] MEDS ORDERED: HYDROCODONE/APAP 5/325 TAB PO ONE (20:00)
[2016-08-21] MEDS ORDERED: HYDROCODONE/APAP 5/325 TAB ONE (20:24)
== END 2016-08-21 21:05 | disposition home or self-care (01) ==
LOC: EDUNIT#
DX: S43.401A Unspecified sprain of right shoulder joint, initial encounter (principal); S40.021A Contusion of right upper arm, initial encounter; I10 Essential (primary) hypertension; Z95.0 Presence of cardiac pacemaker; Z79.01 Long term (current) use of anticoagulants; W18.39XA Other fall on same level, initial encounter

== ENCOUNTER 2016-10-19 08:48 | Day surgery (SDC) | payer OTHER, MEDICARE ==
[2016-10-19] MEDS ORDERED: BACITRACIN IRRIGATION/NS 50,000 UNITS/1,000 ML BTL IRR ONE (08:51)
[2016-10-19] MEDS ORDERED: diphenhydrAMINE 25 MG CAP PO ONE (08:51)
[2016-10-19] MEDS ORDERED: DIAZEPAM 5 MG TAB PO ONE (08:51)
[2016-10-19] MEDS ORDERED: ceFAZolin 2 GM/DEXTROSE 100 ML IV ONE (08:51)
[2016-10-19] MEDS ORDERED: NS 1,000 ML IV ONE (08:51)
--- NOTE | 2016-10-19 09:17 | CPEKG ---
Heart Rate: 67 RR Interval: 896 P-R Interval: 248 QRSD Interval: 102 QT Interval: 408 QTC Interval: 431 QRS [place]: -86 T Wave [place]: 14 EKG Severity - ABNORMAL ECG - EKG Impression: ATRIAL-PACED RHYTHM EKG Impression: LAD, CONSIDER LEFT ANTERIOR FASCICULAR BLOCK EKG Impression: LOW VOLTAGE IN FRONTAL LEADS EKG Impression: BORDERLINE T WAVE ABNORMALITIES Electronically Signed By: Shahab Marley 19-Oct-2016 09:42:44
[2016-10-19 09:33] LABS: % IMMATURE GRANULYOCYTES 0.2 % (0.0-1.1); ABSOLUTE IMMATURE GRANULOCYTES 0.01 10^3/uL (0.00-0.10); ADD DIFF? NO; ADD MORPH? NO; ADD SCAN? NO; ATYPICAL LYMPHOCYTE FLAG 0 (0-99); FRAGMENT RBC FLAG 0 (0-99); HEMATOCRIT 39.2 % (38.0-47.0); HEMOGLOBIN 12.9 g/dL (12.6-16.3); LEFT SHIFT FLG 0 (0-99); LIPEMIA HEMOLYSIS FLAG 80 (0-99); MEAN CELL HEMOGLOBIN 32.8 pg (27.9-34.1); MEAN CELL HEMOGLOBIN CONCENTR. 32.9 g/dL (32.4-36.7); MEAN CELL VOLUME 99.7 fL (81.5-99.8); MEAN PLATELET VOLUME 9.1 fL (8.7-11.7); PLATELET CLUMPS FLAG 0 (0-99); PLATELET COUNT 172 10^3/uL (150-400); RED BLOOD CELL COUNT 3.93 10^6/uL (4.18-5.33); RED CELL DISTRIBUTION WIDTH 12.6 % (11.5-15.2)
[2016-10-19 10:07] LABS: INR 1.1 (0.83-1.16); PROTIME(PATIENT) 14.1 SEC (12.0-15.0)
[2016-10-19] MEDS ORDERED: HYDROCODONE/APAP 5/325 TAB PO ONE (10:15)
[2016-10-19] MEDS ORDERED: LIDOCAINE 1% 300 MG/30 ML SDV ONE (10:30)
[2016-10-19] MEDS ORDERED: fentaNYL 100 MCG/2 ML INJ ONE (10:31)
[2016-10-19] MEDS ORDERED: MIDAZOLAM 2 MG/2 ML VIAL ONE (10:31)
[2016-10-19] MEDS ORDERED: BUPIVACAINE 0.5% 30 ML SDV ONE (10:31)
[2016-10-19 10:57] LABS: ANION GAP 12 mEq/L (8-16); CALCIUM 9.4 mg/dL (8.5-10.4); CARBON DIOXIDE 25 mEq/l (22-31); CHLORIDE 97 mEq/L (97-110); CREATININE 0.6 mg/dL (0.6-1.0); GLOMERULAR FILTRATION RATE > 60; GLUCOSE 89 mg/dL (70-100); POTASSIUM 4.1 mEq/L (3.5-5.2); SODIUM 134 mEq/L (134-144)
--- NOTE | 2016-10-19 12:50 | EPPROC ---
Electrophysiology Procedure Note: PROCEDURE PERFORMED: 1. AV Pacemaker generator change INDICATION: Pacemaker generator at CAMMY Bradycardia PROCEDURE NOTE: Patient presented to the cardiac catheterization laboratory in a fasting, postabsorptive state. CCL RN administered sedation. The left infraclavicular area was prepped and draped in the usual sterile fashion. Lidocaine plus bupivacaine was used for local anesthesia. Using a combination of blunt and sharp dissection and electrocautery, the dissection was carried down to the prepectoral fascia and the existing pacemaker pocket was opened. The pacemaker generator was disconnected from the leads and the lead thresholds and impedance were checked. The pacemaker pocket was copiously irrigated with antibiotic solution. The pocket was again inspected for any bleeding. The leads were attached to the pacemaker securely. The pacemaker was inserted into the pocket and secured in place with a nonabsorbable suture. The pacemaker pocket was closed in 3 layers with absorbable monocryl sutures and maura. Appropriate dressing was applied. The patient left the cardiac catheterization laboratory in stable condition. Serial Numbers: 1. Device SJ Assalexsandra ANNA SN [id number] 2. Atrial Lead SJM Tendril 1888 46cm SN [id number] 3. Ventricular Lead SJM Tendril 1888TC 52 cm SN [id number] Stimulation Thresholds & Impedance Measurements: 1. Atrial Lead P 3.7 mV 0.5 V 0.5 ms 400 ohm 2. Ventricular Lead R 3 mV 0.75V 0.5 ms 400 ohm [place] Pacing Parameters 1. Pacing mode DDR 2. Lower rate 60 ppm 3. Upper tracking rate 120 ppm 4. Upper sensor rate 120 ppm Patient Problems: Problems Problem Status Onset Hyponatremia Acute Hypertensive urgency Acute Chest pain Acute Left knee pain Acute Chronic pain Acute Recurrent falls Acute Fall Acute Failure to thrive Acute Generalized weakness Acute Right shoulder pain Acute Right hip pain Acute Head injury Acute Hyponatremia syndrome Acute
== END 2016-10-19 14:32 | disposition home or self-care (01) ==
LOC: FCATH 08:48
PROVIDERS: ATTEND Internal Medicine Cardiovascular Disease
PROC: 0JPT0PZ Removal of Cardiac Rhythm Related Device from Trunk Subcutaneous Tissue and Fascia, Open Approach (ICD-10-PCS; principal; 2016-10-19)
PROC: 0JH606Z Insertion of Pacemaker, Dual Chamber into Chest Subcutaneous Tissue and Fascia, Open Approach (ICD-10-PCS; principal; 2016-10-19)
DX: Z45.010 Encounter for checking and testing of cardiac pacemaker pulse generator [battery] (principal); I49.5 Sick sinus syndrome; I48.0 Paroxysmal atrial fibrillation; I10 Essential (primary) hypertension; G47.33 Obstructive sleep apnea (adult) (pediatric)
CPT/HCPCS: C1785; J0690; J2250; J3010